=== PATIENT | male | born 1990 | race Two or more races ===

== ENCOUNTER 2018-04-13 19:01 | Emergency (ER) | payer OTHER ==
[~2018-04-13] VITALS: Ht 172.7 cm; Wt 71.5 kg
[~2018-04-13 19:01] MED LIST: AMOX1TAB64 PO; HYDR-3237 PO
[2018-04-13] MEDS ORDERED: KETOROLAC 30 MG/1 ML ONE (19:23)
[2018-04-13 19:25] LABS: BASOPHILS # (AUTO) 0.04 x10^3/uL (0-0.1); BASOPHILS % (AUTO) 0 % (0-1); EOSINOPHILS # (AUTO) 0.03 x10^3/uL (0-0.4); EOSINOPHILS % (AUTO) 0 % (1-7); LYMPHOCYTES # (AUTO) 2.16 x10^3/uL (1-3.4); LYMPHOCYTES % (AUTO) 18 % (22-44); MD NO; MEAN CORPUSCULAR HEMOGLOBIN 30.8 pg (27.5-34.5); MEAN CORPUSCULAR HGB CONC 34.3 g/dL (33.2-36.2); MEAN CORPUSCULAR VOLUME 89.9 fL (81-97); MEAN PLATELET VOLUME 7.3 fL (7.4-10.4); MONOCYTES # (AUTO) 0.47 x10^3/uL (0.2-0.8); MONOCYTES % (AUTO) 4 % (2-9); NEUTROPHILS # (AUTO) 9.04 x10^3/uL (1.8-6.8); NEUTROPHILS % (AUTO) 77 % (42-75); PLATELET COUNT 255 x10^3/uL (130-400); RED BLOOD COUNT 5.52 x10^6/uL (4.38-5.82); RED CELL DISTRIBUTION WIDTH 12.7 % (9.4-14.8)
[2018-04-13] MEDS ORDERED: KETOROLAC 30 MG/1 ML IVPush ONE (19:30)
[2018-04-13] MEDS ORDERED: KETOROLAC 30 MG/1 ML IM ONE (19:30)
[2018-04-13 19:36] LABS: ALBUMIN 4.1 g/dL (3.4-5.0); ANION GAP 7 mmol/L (5-15); CHLORIDE 105 mmol/L (98-107)
[2018-04-13 19:39] LABS: ALANINE AMINOTRANSFERASE 39 U/L (12-78); ALKALINE PHOSPHATASE 63 U/L (45-117); BILIRUBIN,TOTAL 0.7 mg/dL (0.2-1.0); CREATININE 0.78 mg/dL (0.7-1.3); TOTAL PROTEIN 7.5 g/dL (6.4-8.2)
--- NOTE | 2018-04-13 20:07 | NUR ---
PT HAS RETURNED FROM [facility]. PT ATTEMPTING UA AT THIS TIME. PT DENIES FURTHER NEEDS.
--- NOTE | 2018-04-13 20:20 | NUR ---
UA OBTAINED AND TUBED TO LAB
[2018-04-13] MEDS ORDERED: MAALOX/HYOSCYAMINE/LIDOCAINE 45 ML BTL ONE (20:21)
[2018-04-13 20:28] LABS: MICROSCOPIC NOT IND
[2018-04-13] MEDS ORDERED: MAALOX/HYOSCYAMINE/LIDOCAINE 45 ML BTL PO ONE (20:30)
[2018-04-13] MEDS ORDERED: DICYCLOMINE 20 MG TABLET PO ONE (20:30)
[2018-04-13 20:32] LABS: CULTURE INDICATED? NO
[2018-04-13] MEDS ORDERED: FAMOTIDINE 20 MG TABLET ONE (20:44)
[2018-04-13] MEDS ORDERED: FAMOTIDINE 20 MG TABLET PO ONE (21:00)
[2018-04-13] MEDS ORDERED: DICYCLOMINE 20 MG TABLET ONE (21:00)
[2018-04-13 21:04] VITALS: BP 129/74
== END 2018-04-13 22:07 | disposition home or self-care (01) ==
LOC: ED 20:13
DX: K29.20 Alcoholic gastritis without bleeding (principal); F17.200 Nicotine dependence, unspecified, uncomplicated; Z90.49 Acquired absence of other specified parts of digestive tract
CPT/HCPCS: 36415; 76700; 80053; 81003; 83690; 85025; 96374; 99284; J1885

== ENCOUNTER 2018-07-18 21:12 | Emergency (ER) | payer OTHER ==
[~2018-07-18] VITALS: Ht 170.2 cm; Wt 75.0 kg
--- NOTE | 2018-07-18 21:48 | NUR ---
PT PRESENTS W/ "I AM HAVING A MENTAL BREAK DOWN." STATES RECENT INCREASE IN STRESS IN LIFE AND "I FEEL BETTER NOW I JUST WANT TO BE.... WHOOOSH" (MOVES HANDS LIKE A WAVE) PT DENIES SI/HI. DENIES ANY PSYCH HX/FAMILY HX. FAMILY AT BEDSIDE BROUGHT HIM IN. PT HERE VOLUNTARY ASKING FOR HELP. ALSO C/O BILATERAL LEG SWELLING. 2+ NON-PITTING EDEMA NOTED. DENIES CP/SOB. THIS RN REQUESTED UA. PT REFUSED AT THIS TIME. PA AWARE. FAMILY REMAINS AT BEDSIDE.
--- NOTE | 2018-07-18 22:14 | NUR ---
PT PROMPTED FOR UA AGAIN. STATES STILL UNABLE TO. REFUSING PO WATER. PA STILL AWARE. FAMILY AT BEDSIDE NO IMMEDIATE NEEDS.
[2018-07-18 22:16] LABS: BASOPHILS # (AUTO) 0.01 x10^3/uL (0-0.1); BASOPHILS % (AUTO) 0 % (0-1); EOSINOPHILS % (AUTO) 1 % (1-7); LYMPHOCYTES # (AUTO) 2.51 x10^3/uL (1-3.4); LYMPHOCYTES % (AUTO) 31 % (22-44); MD NO; MEAN CORPUSCULAR HEMOGLOBIN 30.3 pg (27.5-34.5); MEAN CORPUSCULAR HGB CONC 34.6 g/dL (33.2-36.2); MEAN CORPUSCULAR VOLUME 87.5 fL (81-97); MEAN PLATELET VOLUME 7.2 fL (7.4-10.4); MONOCYTES # (AUTO) 1.12 x10^3/uL (0.2-0.8); MONOCYTES % (AUTO) 14 % (2-9); NEUTROPHILS # (AUTO) 4.37 x10^3/uL (1.8-6.8); NEUTROPHILS % (AUTO) 54 % (42-75); PLATELET COUNT 266 x10^3/uL (130-400); RED BLOOD COUNT 5.59 x10^6/uL (4.38-5.82); RED CELL DISTRIBUTION WIDTH 12.6 % (9.4-14.8)
[2018-07-18 22:30] LABS: ALBUMIN 4.5 g/dL (3.4-5.0); ANION GAP 6 mmol/L (5-15); CALCIUM 9.1 mg/dL (8.5-10.1); CHLORIDE 105 mmol/L (98-107)
[2018-07-18 22:33] LABS: ALANINE AMINOTRANSFERASE 66 U/L (12-78); ALKALINE PHOSPHATASE 55 U/L (45-117); BILIRUBIN,TOTAL 1.4 mg/dL (0.2-1.0); TOTAL PROTEIN 7.8 g/dL (6.4-8.2)
[2018-07-18 22:34] LABS: ACETAMINOPHEN < 2 mcg/mL (10-30); SALICYLATE LEVEL < 1.7 mg/dL (2.8-20.0)
--- NOTE | 2018-07-18 23:04 | NUR ---
RESTING COMFORTABLY ON GURNEY. FAMILY AT BEDSIDE. CALL LIGHT WITHIN REACH. STILL AWAITING UA FROM PT. STILL REFUSING.
[2018-07-18 23:09] LABS: T4 (THYROXINE) 14.2 mcg/dL (4.5-12.1); THYROID STIMULATING HORMONE 1.28 mIU/L (0.358-3.740)
--- NOTE | 2018-07-18 23:27 | NUR ---
Pt family requesting to go home and to seek out pt psychiatrist help. Would like anxiety medication to go home with. PA made aware.
[2018-07-18 23:47] VITALS: BP 132/70
--- NOTE | 2018-07-18 23:51 | NUR ---
at bedside for recheck.
== END 2018-07-19 00:34 | disposition home or self-care (01) ==
LOC: ED 22:04
DX: F41.1 Generalized anxiety disorder (principal)
CPT/HCPCS: 36415; 80053; 80307; 80329; 84436; 84443; 85025; 99284; G0480

== ENCOUNTER 2018-08-10 02:58 | Emergency (ER) | payer OTHER ==
[~2018-08-10] VITALS: Ht 167.6 cm; Wt 80.0 kg
[2018-08-10] MEDS ORDERED: TRAZ-137 PO (03:21)
--- NOTE | 2018-08-10 03:21 | NUR ---
BIB [facility] FOR C/O SI. PT. DENIES SI/HI AT TIME OF ARRIVAL TO ED. STATES "I DON'T WANT TO HURT MYSELF, I FEEL LIKE PEOPLE ARE AFTER ME TRYING TO KILL ME." PT. REPORTS HAS BEEN "AT [facility] FOR THE SAME THING BEFORE." DENIES HX OF SI. ONLY REPORTED MEDICATION IS TRAZODONE 50MG FOR SLEEP. +ETOH AND MARIJUANA PER PT. PT. BELONGINGS REMOVED AND PLACED INTO 1 BAG AND SECURED IN LOCKER. PT. IN SECURED ROOM WITH SITTER IN [place]. URINE SAMPLE PROVIDED AND SENT TO LAB. RACHELE HOFFMAN HAS BEEN IN TO EVAL PT. AND DISCUSS POC. PT. VERY PARANOID ABOUT "PEOPLE COMING TO GET ME". PT. OFFERED REASSURANCE OF HIS SAFETY.
[2018-08-10 03:36] LABS: BASOPHILS # (AUTO) 0.03 x10^3/uL (0-0.1); BASOPHILS % (AUTO) 0 % (0-1); EOSINOPHILS # (AUTO) 0.16 x10^3/uL (0-0.4); EOSINOPHILS % (AUTO) 2 % (1-7); LYMPHOCYTES # (AUTO) 2.92 x10^3/uL (1-3.4); LYMPHOCYTES % (AUTO) 35 % (22-44); MD NO; MEAN CORPUSCULAR HEMOGLOBIN 30.5 pg (27.5-34.5); MEAN CORPUSCULAR HGB CONC 34.3 g/dL (33.2-36.2); MEAN CORPUSCULAR VOLUME 88.8 fL (81-97); MEAN PLATELET VOLUME 6.9 fL (7.4-10.4); MONOCYTES # (AUTO) 0.65 x10^3/uL (0.2-0.8); MONOCYTES % (AUTO) 8 % (2-9); NEUTROPHILS # (AUTO) 4.56 x10^3/uL (1.8-6.8); NEUTROPHILS % (AUTO) 55 % (42-75); PLATELET COUNT 291 x10^3/uL (130-400); RED BLOOD COUNT 5.09 x10^6/uL (4.38-5.82); RED CELL DISTRIBUTION WIDTH 13.5 % (9.4-14.8)
[2018-08-10 03:48] LABS: AMPHETAMINE SCREEN, URINE Negative (Negative); BARBITURATE SCREEN, URINE Negative (Negative); BENZODIAZEPINE SCREEN, URINE Negative (Negative); CANNABINOID SCREEN, URINE Negative (Negative); COCAINE SCREEN, URINE Negative (Negative); METHADONE SCREEN, URINE Negative (Negative); OPIATE SCREEN, URINE Negative (Negative)
[2018-08-10 03:50] LABS: ALANINE AMINOTRANSFERASE 29 U/L (12-78); ALBUMIN 3.8 g/dL (3.4-5.0); ANION GAP 10 mmol/L (5-15); CHLORIDE 103 mmol/L (98-107); CREATININE 0.82 mg/dL (0.7-1.3); SALICYLATE LEVEL 2.2 mg/dL (2.8-20.0)
[2018-08-10 03:54] LABS: ALKALINE PHOSPHATASE 63 U/L (45-117); BILIRUBIN,TOTAL 0.4 mg/dL (0.2-1.0); TOTAL PROTEIN 7.5 g/dL (6.4-8.2)
[2018-08-10 03:55] LABS: ACETAMINOPHEN < 2 mcg/mL (10-30)
--- NOTE | 2018-08-10 04:20 | NUR ---
PT. STARTED TO AMBULATE DOWN [place], REPORTING TO SITTER THAT HE WAS MAKING SURE NO ONE AROUND THE CORNER WAITING FOR HIM. PT. AGAIN OFFERED REASSURANCE THAT HE IS SAFE HERE. PT. VERBALIZED UNDERSTANDING OF NEED TO STAY IN ED ROOM. ROOM REMAINS SECURED. SITTER IN [place].
--- NOTE | 2018-08-10 04:36 | NUR ---
PT. CONTINUES ATTEMPTING TO LEAVE ROOM TO ENSURE HIS SAFETY. PT. REQUESTING PAPER AND PENCIL AT THIS TIME. WILL SEARCH FOR A CRAYON AND PAPER FOR PT.
[2018-08-10] MEDS ORDERED: LORazepam 1MG TABLET ONE (04:41)
--- NOTE | 2018-08-10 04:54 | NUR ---
PT. HAS BEEN MEDICATED PER [facility] AFTER NEW ORDERS RECEIVED POST DISCUSSION WITH ERP. PT. PROVIDED WITH MARKER AND PAPER PER REQUEST. NO CRAYONS AVAILABLE; CALLED [facility] AND THEY ALSO DON'T HAVE CRAYONS. SITTER IN DIRECT VIEW OF PT. AND PT. AGREES TO GIVE MARKER BACK WHEN DONE. ROOM REMAINS SECURED. SITTER IN [place].
[2018-08-10] MEDS ORDERED: LORazepam 1MG TABLET PO ONE (05:00)
--- NOTE | 2018-08-10 05:19 | NUR ---
REPORT TO [facility] .
--- NOTE | 2018-08-10 05:58 | NUR ---
[facility] MD CONTINUES TO EVAL PT. PT. COOPERATIVE WITH MD AND ANSWERING QUESTIONS.
--- NOTE | 2018-08-10 06:09 | NUR ---
[facility] MD CALLED BACK; THEY ARE RECOMMENDING INPATIENT ADMISSION FOR FURTHER EVAL. AWAITING FAX PAPERWORK FROM [facility].
--- NOTE | 2018-08-10 07:13 | NUR ---
Recieved bedside report from KADY Richards. All questions answered. Assuming care of pt. Pt asleep on [facility]. Pt has even chest rise and fall. NADN. No needs expressed. SI precautions in place. Sitter near doorway in direct line of sight for observation.
--- NOTE | 2018-08-10 07:16 | NUR ---
PACKET FAXED TO [facility], [facility] AND [facility]
--- NOTE | 2018-08-10 08:28 | NUR ---
Provided report over the phone to Karina at [facility]. All questions answered. Per Karina, "I think we are getting this patient around noon."
--- NOTE | 2018-08-10 08:29 | NUR ---
Pt sleeping on gurney. NADN. Pt has even chest rise and fall. No needs expressed at this time. Sitte near doorway in direct line of sight for observation.
--- NOTE | 2018-08-10 08:51 | NUR ---
Provided bedside report to KADY Lee. All questions answered. KADY Lee to assume care of pt.
[2018-08-10 09:20] VITALS: BP 120/81
== END 2018-08-10 12:21 ==
LOC: ED 03:19
DX: F60.0 Paranoid personality disorder (principal); F17.210 Nicotine dependence, cigarettes, uncomplicated; F32.9 Major depressive disorder, single episode, unspecified
CPT/HCPCS: 36415; 70450; 80053; 80307; 85025; 99284; 99285

== ENCOUNTER 2018-10-21 02:42 | Emergency (ER) | payer MEDICAID, OTHER ==
[~2018-10-21] VITALS: Ht 170.2 cm; Wt 98.0 kg
[~2018-10-21 02:42] MED LIST changes: +TRAZ-137 PO
[2018-10-21] MEDS ORDERED: FAMOTIDINE 20 MG TABLET ONE (03:17)
--- NOTE | 2018-10-21 03:23 | NUR ---
ID OF MEDICATIONS GIVEN FOR MANAGEMENT OF RASH.
[2018-10-21] MEDS ORDERED: FAMOTIDINE 20 MG TABLET PO ONE (03:30)
--- NOTE | 2018-10-21 03:34 | NUR ---
D/C INST REVIEWED W/ THE PT TO INCLUDE 4 NEW MEDICATIONS FOR RASH MANAGEMENT. THE PT VERB UNDERSTANDING AND DENIES QUESTIONS. THE PT WAS GIVEN A WORK NOTE BY THE PA. THE PT AMB OUT OF THE ED W/O DIFF.
[2018-10-21 03:36] VITALS: BP 133/83
== END 2018-10-21 03:39 | disposition home or self-care (01) ==
LOC: ED 03:00
DX: L40.4 Guttate psoriasis (principal); F32.9 Major depressive disorder, single episode, unspecified; F17.210 Nicotine dependence, cigarettes, uncomplicated; Z87.19 Personal history of other diseases of the digestive system; F60.9 Personality disorder, unspecified
CPT/HCPCS: 99284; J7512; Q0177